=== PATIENT | male | born 1990 | race Caucasian/White ===

== ENCOUNTER 2017-01-11 08:48 | Emergency (ER) | payer MEDICAID ==
[~2017-01-11] VITALS: Ht 182.9 cm; Wt 96.5 kg
[~2017-01-11 08:48] MED LIST: ACET325T33 PO; IBUP800T25 PO; MECL25TA2 PO
[2017-01-11 08:53] VITALS: Ht 182.9 cm; Wt 96.5 kg
--- NOTE | 2017-01-11 09:31 | RADRPT ---
PROCEDURE: Shoulder x-ray CLINICAL INDICATION: Pain TECHNIQUE: Left shoulder 3 views COMPARISON: None FINDINGS: 3 views of the left shoulder demonstrate no displaced fracture. The humeral head articulates anatom ically with the glenoid fossa. The acromioclavicular articulation is within normal limits. Bones a re normally mineralized. Soft tissues are unremarkable. IMPRESSION: No acute fracture dislocation No significant degenerate change RPTAT: HH .Jus Farmer MD, Date Time Electronically viewed and signed by .Jus Farmer MD, on 01/11/2017 09:31 .W/
[2017-01-11] MEDS ORDERED: IBUP-1542 PO (09:44)
[2017-01-11] MEDS ORDERED: HYDR-906 PO (09:45)
--- NOTE | 2017-01-11 09:55 | ERD ---
ER Documentation Chief Complaint Date/Time DATE: 01/11/17 TIME: 09:50 Chief Complaint PT WITH L SHOULDER PAIN SINCE YESTERDAY, AFTER GLF HPI Patient is a 26-year-old male who presents to the emergency department with left shoulder pain since yesterday. Patient states he was playing soccer when he tripped over the ball and landed on his left shoulder. Patient reports pain localized to left shoulder. Patient denies any radiation of pain down his arm. Patient does report pain with attempting to elevate his arm. Patient has normal range of motion of the elbow hand and fingers. Patient denies any previous injuries to the affected extremity. Patient is right-hand dominant. Patient does report taking Tylenol for his symptoms with some alleviation of the pain. Patient denies any head injury, fevers, chills, nausea, vomiting, chest pain, shortness of breath or LOC. ROS All systems reviewed and are negative except as per history of present illness. Medications Home Meds Active Scripts Hydrocodone/Acetaminophen ([place] 5-325 Tablet) 1 Each Tablet, 1 TAB PO Q6H Y for PAIN, #7 TAB Prov:CYRIL SANABRIA PA-C 01/11/17 Ibuprofen* (Motrin*) 600 Mg Tab, 600 MG PO Q6, #30 TAB Prov:CYRIL SANABRIA PA-C 01/11/17 Acetaminophen* (Tylenol*) 325 Mg Tablet, 2 TAB PO Q6 Y for PAIN AND OR ELEVATED TEMP, #20 TAB Prov:MAYNOR HERNANDEZRAM DO 01/16/15 Meclizine Hcl* (Antivert*) 25 Mg Tablet, 25 MG PO Q6H Y for dizziness, #20 TAB Prov[facility] 01/16/15 Ibuprofen* (Motrin*) 800 Mg Tab, 800 MG PO Q6H Y for PAIN AND OR ELEVATED TEMP, #20 TAB Prov:MAYNOR HERNANDEZRAM DO 01/16/15 Allergies Allergies: Coded Allergies: No Known Allergy (Unverified , 01/11/17) PMhx/Soc Medical and Surgical Hx: pt denies Medical Hx, pt denies Surgical Hx History of Surgery: No Hx Neurological Disorder: No Hx Respiratory Disorders: No Hx Cardiac Disorders: No Hx Psychiatric Problems: No Hx Miscellaneous Medical Probl: No Hx Alcohol Use: No Hx Substance Use: No Hx Tobacco Use: No Smoking Status: Never smoker Physical Exam Vitals Vital Signs Date Time Temp Pulse Resp B/P Pulse Ox O2 Delivery O2 Flow Rate FiO2 01/11/17 08:53 97.5 72 18 128/74 96 Physical Exam GENERAL: Well-developed, well-nourished male. Appears in no acute distress. Speaking in full sentences HEAD: Normocephalic, atraumatic. EYES: Pupils are equally reactive bilaterally. EOMs grossly intact. No conjunctival erythema. ENT: Moist mucous membranes. No uvula deviation. No kissing tonsils. NECK: Supple. No meningismus. Normal range of motion of the neck. LUNG: Clear to auscultation bilaterally. No rhonchi, wheezing, rales or coarse breath sounds. HEART: Regular rate and rhythm. No murmurs, rubs or gallops. BACK: No midline tenderness. EXTREMITIES: Equal pulses bilaterally. No peripheral clubbing, cyanosis or edema. No unilateral leg swelling. NEUROLOGIC: Alert and oriented. Moving all four extremities without any difficulty. Normal speech. Steady gait. SKIN: Normal color. Warm and dry. No rashes or lesions. LEFT SHOULDER: No obvious deformity, erythema, ecchymosis. Slight swelling noted to the anterior shoulder. Decreased range of motion of the shoulder secondary to pain. Nontender to palpation of the distal humerus, elbow, forearm. Patient able to supinate pronate without any difficulty. Normal range of motion of the elbow. Sensation intact to light touch. Neurovascularly intact. (Able to give thumbs up, make an ok sign, cross digits 2 and 3, thumb to pinky opposition. 2+ RP.) No snuffbox tenderness. Procedures/MDM ED COURSE: The patient was stable throughout ED course. I kept the patient and/or family informed of laboratory and diagnostic imaging results throughout the ED course. DIAGNOSTIC IMAGING: Read by radiologist. Patient: SANDI WOODALL : 1990 Age: 26 Sex: M MR #: [id number] DOS: 01/11/17 0901 Ordering MD: CYRIL SANABRIA PA-C Location: [facility] Room/Bed: PROCEDURE: Shoulder x-ray CLINICAL INDICATION: Pain TECHNIQUE: Left shoulder 3 views COMPARISON: None FINDINGS: 3 views of the left shoulder demonstrate no displaced fracture. The humeral head articulates anatomically with the glenoid fossa. The acromioclavicular articulation is within normal limits. Bones are normally mineralized. Soft tissues are unremarkable. IMPRESSION: No acute fracture dislocation No significant degenerate change RPTAT: HH .Jus Farmer MD, MD Date Time Electronically viewed and signed by .Jus Farmer MD, MD on 01/11/2017 09:31 .W/ CC: CYRIL SANABRIA PA-C PROCEDURES: SPLINT APPLICATION: The patient was verbally consented at bedside prior to splint application. Patient was explained the risks, benefits and alternatives to this procedure. The patient was neurovascularly intact prior to and status post application of the splint. The patient tolerated the procedure well with no complications. Splint type: ED sling Extremity: L shoulder Indication: L shoulder pain, unable to rule out any ligament or tendon injuries at this time. MEDICAL DECISION MAKING: This is a 26-year-old male who presents with left shoulder pain after ground- level fall while playing soccer yesterday. Vital signs were reviewed. Patient is afebrile. Patient is not hypoxic. Imaging was negative for acute fracture dislocation. No significant degenerative changes noted. Patient was placed and shoulder sling for comfort measures. Patient was advised to follow-up with the laboratory specialist and/or obtain an MRI and an outpatient basis if his pain persists. Given these findings, the patients presentation is most consistent with left shoulder pain. I have a much lower clinical concern for fracture, dislocation, impingement syndrome, biceps tendonitis, gout, septic joint, osteoarthritis. Unable to rule out any ligament or tendon injuries at this time. PRESCRIPTIONS: Ibuprofen, [place] DISCHARGE: At this time, patient is stable for discharge and outpatient management. Patient was provided with copy of all imaging studies obtained today. RICE therapy and ROM exercises were advised to avoid stiffness. I have instructed the patient to follow-up with his/her primary care physician in 1-2 days. I have discussed with the patient the possibility of needing to see an laboratory specialist for further workup and imaging if the pain persists. I have instructed the patient to promptly return to the ER for any new or worsening symptoms including increased pain, swelling, redness, warmth or fever. The patient and/or family expressed understanding of and agreement with this plan. All questions were answered. Home care instructions were provided. Disclaimer: Inadvertent spelling and grammatical errors are likely due to EHR/ dictation software use and do not reflect on the overall quality of patient care. Also, please note that the electronic time recorded on this note does not necessarily reflect the actual time of the patient encounter. Departure Diagnosis: Primary Impression: Shoulder injury Encounter type: initial encounter Laterality: left Qualified Code: S49.92XA - Shoulder injury, left, initial encounter Condition: Stable Patient Instructions: Shoulder Pain (Uncertain Cause) Referrals: [facility] YOU HAVE RECEIVED A MEDICAL SCREENING EXAM AND THE RESULTS INDICATE THAT YOU DO NOT HAVE A CONDITION THAT REQUIRES URGENT TREATMENT IN THE EMERGENCY DEPARTMENT. FURTHER EVALUATION AND TREATMENT OF YOUR CONDITION CAN WAIT UNTIL YOU ARE SEEN IN YOUR DOCTORS OFFICE WITHIN THE NEXT 1-2 DAYS. IT IS YOUR RESPONSIBILITY TO MAKE AN APPOINTMENT FOR FOLOW-UP CARE. IF YOU HAVE A PRIMARY DOCTOR --you should call your primary doctor and schedule an appointment IF YOU DO NOT HAVE A PRIMARY DOCTOR YOU CAN CALL OUR PHYSICIAN REFERRAL HOTLINE AT IF YOU CAN NOT AFFORD TO SEE A PHYSICIAN YOU CAN CHOSE FROM THE FOLLOWING [facility] [address] [facility]. [facility] [address] [facility]. [facility] [address] [facility] [facility] [address] [facility] [facility] [address] [facility]. [facility]. [address] [facility]. [facility] YOU HAVE RECEIVED A MEDICAL SCREENING EXAM AND THE RESULTS INDICATE THAT YOU DO NOT HAVE A CONDITION THAT REQUIRES URGENT TREATMENT IN THE EMERGENCY DEPARTMENT. FURTHER EVALUATION AND TREATMENT OF YOUR CONDITION CAN WAIT UNTIL YOU ARE SEEN IN YOUR DOCTORS OFFICE WITHIN THE NEXT 1-2 DAYS. IT IS YOUR RESPONSIBILITY TO MAKE AN APPOINTMENT FOR FOLOW-UP CARE. IF YOU HAVE A PRIMARY DOCTOR --you should call your primary doctor and schedule and appointment IF YOU DO NOT HAVE A PRIMARY DOCTOR YOU CAN CALL OUR PHYSICIAN REFERRAL HOTLINE AT . IF YOU CAN NOT AFFORD TO SEE A PHYSICIAN YOU CAN CHOSE FROM THE FOLLOWING [facility] INSTITUTIONS: [facility] [address] [place] [address] [facility] [address] [place] [address] [facility] [address] [place] [address] [facility] Hours: Mon-Fri 9:00 AM - 5:00 PM Additional Instructions: Call your primary care doctor TOMORROW for an appointment during the next 1-2 days.See the doctor sooner or return here if your condition worsens before your appointment time. Unable to rule out any ligament or tendon injuries at this time. Patient advised to follow-up with an laboratory specialist and/or obtain an MRI on an outpatient basis if the pain persists. CYRIL SANARBIA PA-C Jan 11, 2017 09:55
== END 2017-01-11 10:03 | disposition home or self-care (01) ==
LOC: FTE 08:48
DX: S49.92XA Unspecified injury of left shoulder and upper arm, initial encounter (principal); W01.0XXA Fall on same level from slipping, tripping and stumbling without subsequent striking against object, initial encounter; Y92.9 Unspecified place or not applicable
CPT/HCPCS: 73030; Z7502

== ENCOUNTER 2017-08-17 17:03 | Emergency (ER) | END 2017-08-17 17:50 | disposition home or self-care (01) ==

== ENCOUNTER 2018-08-02 08:10 | Emergency (ER) | payer MEDICAID ==
[~2018-08-02] VITALS: Ht 182.9 cm; Wt 106.5 kg
[~2018-08-02 08:10] MED LIST changes: +ALBU18HF INHALATION; +CLAR500T PO; +HYDR-4011 PO; +IBUP-1542 PO; -IBUP800T25 PO; +IBUP800T48 PO; +LORA1TAB54 PO
[2018-08-02 08:13] VITALS: BP 115/71; PULSE 62; RESP 18; Ht 182.9 cm; Wt 106.5 kg
[2018-08-02] MEDS ORDERED: KETOROLAC 60 MG INJ IM STA (08:35)
--- NOTE | 2018-08-02 08:42 | ERD ---
ER Documentation Chief Complaint Chief Complaint BACK PAIN , ONSET YESTERDAY @ GYM HPI This is a 28-year-old male with a nonsignificant past medical history presents ED with complaints of low back pain that started yesterday. Patient states that he was squatting at the gym and heard a crack in his low back and started to experience pain. Patient admits to painful range of motion and decreased range of motion due to pain. Aggravating factors include movement. Alleviating factors include rest. Patient rates pain at a 5 out of 10 at rest and rates at an 8 out of 10 with certain movements. Denies tingling, numbness, lack sensation, bowel/bladder incontinence, saddle paresthesias, fever, chills and history of IV drug abuse. Requesting x-ray. ROS All systems reviewed and are negative except as per history of present illness. Medications Home Meds Active Scripts Hydrocodone/Acetaminophen ([place] 5-325 Tablet) 1 Each Tablet, 1 TAB PO Q6H PRN for PAIN, #3 TAB Prov:MARIO DIEGO PA-C 08/02/18 Methocarbamol* (Robaxin*) 500 Mg Tab, 500 MG PO Q6, #15 TAB Prov:MARIO DIEGO PA-C 08/02/18 Naproxen* (Naprosyn*) 500 Mg Tablet, 500 MG PO BID PRN for PAIN AND/OR INFLAMMATION, #30 TAB Prov:MARIO DIEGO PA-C 08/02/18 Albuterol Sulfate* (Ventolin HFA*) 18 Gm Hfa.aer.ad, 2 PUFF INHALATION Q4H, #1 INHALER Prov:BILL,DOUG 08/17/17 Loratadine/Pseudoephedrine* (Claritin-D* 12 Hr) 5-120 Mg Tab.er.12h, 1 TAB PO Q DAY PRN for ROUTINE for 10 Days, #20 TAB.SA Prov:BILL,DOUG 08/17/17 Clarithromycin* (Clarithromycin*) 500 Mg Tablet, 500 MG PO BID for 10 Days, #20 TAB Prov:BILL,DOUG 08/17/17 Hydrocodone/Acetaminophen ([place] 5-325 Tablet) 1 Each Tablet, 1 TAB PO Q6H PRN for PAIN, #7 TAB Prov:CYRIL SANABRIA PA-C 01/11/17 Ibuprofen* (Motrin*) 600 Mg Tab, 600 MG PO Q6, #30 TAB Prov:CYRIL SANABRIA PA-C 01/11/17 Acetaminophen* (Tylenol*) 325 Mg Tablet, 2 TAB PO Q6 PRN for PAIN AND OR ELEVATED TEMP, #20 TAB Prov:TRACEE HERNANDEZ 01/16/15 Meclizine Hcl* (Antivert*) 25 Mg Tablet, 25 MG PO Q6H PRN for dizziness, #20 TAB Prov:[facility]ID[facility] 01/16/15 Ibuprofen* (Motrin*) 800 Mg Tab, 800 MG PO Q6H PRN for PAIN AND OR ELEVATED TEMP, #20 TAB Prov:[facility] 01/16/15 Allergies Allergies: Coded Allergies: No Known Allergy (Unverified , 01/11/17) PMhx/Soc History of Surgery: No Hx Neurological Disorder: No Hx Respiratory Disorders: No Hx Cardiac Disorders: No Hx Psychiatric Problems: No Hx Miscellaneous Medical Probl: No Hx Alcohol Use: Yes Hx Substance Use: No Hx Tobacco Use: No Smoking Status: Never smoker FmHx Family History: No diabetes Physical Exam Vitals Vital Signs Date Temp Pulse Resp B/P (MAP) Pulse Ox O2 O2 Flow FiO2 Time Delivery Rate 08/02/18 97.8 62 18 115/71 98 08:13 (86) Physical Exam Physical Exam Vitals signs: Reviewed by me. General: Well developed, well nourished, in no acute distress. Patient is awake and alert. Head: Normocephalic, atraumatic. Eyes: Normal conjunctiva, Pupils PERRLA, EOM intact grossly Respiratory: Clear to auscultation bilaterally with no wheezing, rhonchi, rales, no distress Cardiovascular: RRR, no murmurs, rubs, or gallops Back: No thoracic or lumbar midline tenderness, there is mild tenderness palpation along the paravertebral muscles in the left lumbar spine, full range of motion with flexion extension and left and right lateral rotation, no step- off deformities Neurologic: Alert and oriented, moving all extremities, normal speech, no focal weakness, no cerebellar signs. Normal mentation Skin: warm and dry, No rash Psych: Normal mood Results 24 hrs Current Medications Medications Dose Sig/Eric Start Time Status Last (Trade) Ordered Route PRN Stop Time Admin Dose Reason Admin Ketorolac 60 mg ONCE STAT 08/02/18 DC 08/02/18 Tromethamine IM 08:35 08/02/18 08:42 (Toradol) 08:37 Procedures/MDM EKG, MONITORS, & DIAGNOSTIC IMAGING: [place] [address] Radiology Main Line: [phone] DIAGNOSTIC IMAGING REPORT Patient: SANDI WOODALL : 1990 Age: 28 Sex: M MR #: [id number] DOS: 08/02/18 0835 Ordering MD: MARIO DIEGO PA-C Location: [facility]TE Room/Bed: PROCEDURE: XR Lumbar Spine. CLINICAL INDICATION: back pain TECHNIQUE: AP, lateral and cone-down lateral view of the lumbar spine were obtained. COMPARISON: No prior studies are available for comparison. FINDINGS: There is normal vertebral mineralization and alignment. No fracture or subluxation is seen. The disc spaces are normal in appearance. The posterior elements are unremarkable. The soft tissues appear normal. RPTAT: AA IMPRESSION: Unremarkable lumbar spine. .Marvel Bran MD, MD Date Time Electronically viewed and signed by .Marvel Bran MD, MD on 08/02/2018 09:26 .S/ CC: MARIO DIEGO PA-C [id number] ER COURSE: The patient was given Toradol The medication was well tolerated and the patient reports improvement in symptoms. The patient was stable throughout ED course. I kept the patient and/or family informed of laboratory and diagnostic imaging results throughout the emergency room course. The patient was promptly evaluated and a treatment plan was devised based on H&P and other data. This plan was discussed with the patient who agreed and had no further questions or concerns prior to discharge. MEDICAL DECISION MAKIN-year-old male presents ED with low back pain status post injury while squatting at the gym yesterday. Given mechanism of injury and location of back pain being along the paravertebral muscles this is likely a muscle strain or muscle related pain. Patient requesting x-rays. X-rays are unremarkable. History and physical examination other data not consistent with processing including cauda equina syndrome, cord compression, infiltrative etiology, infectious etiology, epidural abscess, fracture, obstructive pyelonephritis, abdominal aortic aneurysm. Vitals are stable and patient can be managed outpatient with close follow-up. Advised patient to follow up with primary care in the next 48 hours. return to ED with any worsening symptoms DISPOSITION PLAN: We discussed follow up with the patient's primary care doctor within 24 to 48 hours. Patient counseled regarding my diagnostic impression and care plan. Prior to discharge all questions answered. Pt agrees with treatment plan and understands strict return precautions. Precautionary instructions provided including instructions to return to the ER if not improving or for any worsening or changing symptoms or concerns. SPECIALIST FOLLOW UP RECOMMENDED: None Patient has been advised to follow up with primary care in 1-2 days. Disclaimer: Inadvertent spelling and grammatical errors are likely due to EHR/dictation software use and do not reflect on the overall quality of patient care. Also, please note that the electronic time recorded on this note does not necessarily reflect the actual time of the patient encounter. Departure Diagnosis: Primary Impression: Back pain Back pain location: low back pain Chronicity: acute Back pain laterality: left Sciatica presence: without sciatica Qualified Codes: M54.5 - Low back pain Condition: Stable Patient Instructions: Back Pain (Acute Or Chronic) Referrals: [facility] Additional Instructions: Patient advised to return to the ED immediately for new or worsening symptoms. Patient advised to follow up with primary care provider in the next 24-48 hours. Patient verbalized understanding and agrees with treatment plan and course of action. If patient has no primary care they may follow up with one of the community clinics listed on the following page or one of the options listed below [facility] + [facility] [address] [place] [id number] or [facility] [address] [place] [address] or [facility] [address] [place] [address] MARIO DIEGO PA-C Aug 02, 2018 08:42
[2018-08-02] MEDS ORDERED: HYDR-4011 PO (08:43)
[2018-08-02] MEDS ORDERED: NAPR-985 PO (08:43)
[2018-08-02] MEDS ORDERED: METH500T PO (08:43)
== END 2018-08-02 09:38 | disposition home or self-care (01) ==
LOC: FTE 08:10
DX: M54.5 Low back pain (principal)
CPT/HCPCS: 72100; 96372; J1885; Z7502

== ENCOUNTER 2018-10-05 19:48 | Emergency (ER) | payer MEDICAID ==
[~2018-10-05] VITALS: Ht 182.9 cm; Wt 110.3 kg
[~2018-10-05 19:48] MED LIST changes: +METH500T PO; +NAPR-985 PO
[2018-10-05 19:59] VITALS: BP 131/65; PULSE 67; RESP 18; Ht 182.9 cm; Wt 110.3 kg
--- NOTE | 2018-10-05 21:20 | ERD ---
ER Documentation Chief Complaint Chief Complaint sore throat x 1 day, also c/o earache, pain bilateral axilla HPI 28-year-old male, previously healthy, presents to the emergency department, complaining of sore throat, associated with right ear pain that started approximately 4 days ago but is getting worse; the patient also reports subjective fever, headache and general malaise. He has a history of contact dermatitis in the axillary area and is requesting a refill for triamcinolone. ROS All systems reviewed and are negative except as per history of present illness. Medications Home Meds Active Scripts Triamcinolone Acetonide (Triamcinolone Acetonide) 0.1% - 15 Gm Cream.gm., 1 APPLIC TOP BID for 7 Days, #1 TUB Prov:JACLYN SULLIVAN MD 10/05/18 Ibuprofen* (Motrin*) 600 Mg Tab, 600 MG PO Q8, #20 TAB Prov:JACLYN SULLIVAN MD 10/05/18 Azithromycin* (Zithromax*) 250 Mg Tablet, 250 MG PO .OliverioPACK DIRECTED, #6 TAB TAKE 500 MG (2 TABS) THE FIRST DAY THEN 250 MG (1 TAB) DAYS 2-5 Prov:JACLYN SULLIVAN MD 10/05/18 Hydrocodone/Acetaminophen ([place] 5-325 Tablet) 1 Each Tablet, 1 TAB PO Q6H PRN for PAIN, #3 TAB Prov:MARIO DIEGO PA-C 08/02/18 Methocarbamol* (Robaxin*) 500 Mg Tab, 500 MG PO Q6, #15 TAB Prov:MARIO DIEGO PA-C 08/02/18 Naproxen* (Naprosyn*) 500 Mg Tablet, 500 MG PO BID PRN for PAIN AND/OR INFLAMMATION, #30 TAB Prov:MARIO DIEGO PA-C 08/02/18 Albuterol Sulfate* (Ventolin HFA*) 18 Gm Hfa.aer.ad, 2 PUFF INHALATION Q4H, #1 INHALER Prov:BILLDOUG 08/17/17 Loratadine/Pseudoephedrine* (Claritin-D* 12 Hr) 5-120 Mg Tab.er.12h, 1 TAB PO Q DAY PRN for ROUTINE for 10 Days, #20 TAB.SA Prov:BILLDOUG 08/17/17 Clarithromycin* (Clarithromycin*) 500 Mg Tablet, 500 MG PO BID for 10 Days, #20 TAB Prov:BILL,DOUG 08/17/17 Hydrocodone/Acetaminophen ([place] 5-325 Tablet) 1 Each Tablet, 1 TAB PO Q6H PRN for PAIN, #7 TAB Prov:ELLYPETERCLARK PA-C 01/11/17 Ibuprofen* (Motrin*) 600 Mg Tab, 600 MG PO Q6, #30 TAB Prov:ELLYCYRIL PA-C 01/11/17 Acetaminophen* (Tylenol*) 325 Mg Tablet, 2 TAB PO Q6 PRN for PAIN AND OR ELEVATED TEMP, #20 TAB Prov:TRACEE HERNANDEZ 01/16/15 Meclizine Hcl* (Antivert*) 25 Mg Tablet, 25 MG PO Q6H PRN for dizziness, #20 TAB [facility] 01/16/15 Ibuprofen* (Motrin*) 800 Mg Tab, 800 MG PO Q6H PRN for PAIN AND OR ELEVATED TEMP, #20 TAB Prov:TRACEE HERNANDEZ 01/16/15 Allergies Allergies: Coded Allergies: No Known Allergy (Unverified , 01/11/17) PMhx/Soc Medical and Surgical Hx: pt denies Medical Hx, pt denies Surgical Hx History of Surgery: No Hx Neurological Disorder: No Hx Respiratory Disorders: No Hx Cardiac Disorders: No Hx Psychiatric Problems: No Hx Miscellaneous Medical Probl: No Hx Alcohol Use: No Hx Substance Use: No Hx Tobacco Use: No Smoking Status: Never smoker FmHx Family History: No diabetes, No coronary disease Physical Exam Vitals Vital Signs Date Temp Pulse Resp B/P (MAP) Pulse Ox O2 O2 Flow FiO2 Time Delivery Rate 10/05/18 97.8 67 18 131/65 98 19:59 (87) Physical Exam Patient is in moderate distress due to pain. EYES: PERRLA, EOMI, injected sclerae EARS: Canals clear, erythematous tympanic membranes THROAT: Erythematous oropharynx with bilateral exudates NECK: Supple, + tender cervical lymphadenopathy. Full ROM without pain or tenderness. HEART: RRR, no rubs, murmurs, clicks or gallops. LUNGS: Bilateral rhonchi to auscultation. ABDOMEN: Soft, non-tender without masses or hepatosplenomegaly. EXTREMITIES: No edema bilaterally, bilateral axillary erythematous plaques. BACK: Full ROM, no deformity, normal back exam NEURO: Cranial nerves grossly intact, no motor or sensory deficit Procedures/MDM Differential diagnosis include but not limited to: Tonsillar/pharyngeal infection bacterial/viral/fungal, parotitis, allergies, GERD. Less likely p eritonsillar abscess, retropharyngeal abscess. No signs of upper respiratory obstruction Physical examination and clinical presentation consistent most likely with acute suppurative tonsillitis. Centor criteria 4/5. During the ED course the patient remained stable. Clinical impression discussed with the patient who agrees with management. The patient is stable to be treated outpatient and will be discharged home with a Rx for antibiotic and ibuprofen. Some side effects of prescribed medications (headache, rash, nausea, vomiting, diarrhea, drowsiness, habituation, bleeding, hypertension, interactions with other medications) were reviewed. The patient was instructed to follow up with the primary care provider in the next 48h. If symptoms persist, worsen or new symptoms develop, then patient should return to the ED immediately. Disclaimer: Inadvertent spelling and grammatical errors are likely due to EHR/dictation software use and do not reflect on the overall quality of patient care. Also, please note that the electronic time recorded on this note does not necessarily reflect the actual time of the patient encounter. Departure Diagnosis: Primary Impression: Otitis media Additional Impressions: Suppurative tonsillitis Contact dermatitis Condition: Stable Patient Instructions: Otitis Media, Abx Tx (Adult) Additional Instructions: Thank you very much for allowing us to participate in your care. Your health and safety is our top priority at [facility]. The evaluation in the emergency department has been done to rule out an acute emergency, therefore, chronic conditions like malignancy or other diseases have not been evaluated; therefore, you need to follow up with a primary care provider in the next 48h. If symptoms persist, worsen or new symptoms develop, then patient should return to the ED immediately. Call your primary care doctor TOMORROW for an appointment during the next 2-4 days and bring all the information provided. Have prescriptions filled and follow precisely the directions on the label. If the symptoms get worse and your provider is unavailable, return to the Emergency Department immediately. JACLYN SULLIVAN MD October 05, 2018 21:20
[2018-10-05] MEDS ORDERED: TRIA15CR55 TOP (21:35)
[2018-10-05] MEDS ORDERED: AZIT250T PO (21:35)
[2018-10-05] MEDS ORDERED: IBUP-1542 PO (21:35)
== END 2018-10-05 21:44 | disposition home or self-care (01) ==
LOC: FTE 19:48
DX: H66.93 Otitis media, unspecified, bilateral (principal); J03.90 Acute tonsillitis, unspecified; L25.9 Unspecified contact dermatitis, unspecified cause; R40.2142 Coma scale, eyes open, spontaneous, at arrival to emergency department; R40.2362 Coma scale, best motor response, obeys commands, at arrival to emergency department; R40.2252 Coma scale, best verbal response, oriented, at arrival to emergency department
CPT/HCPCS: 99283

== ENCOUNTER 2018-10-12 11:22 | Emergency (ER) | payer MEDICAID ==
[~2018-10-12] VITALS: Ht 182.9 cm; Wt 110.7 kg
[~2018-10-12 11:22] MED LIST changes: +AZIT250T PO; +TRIA15CR55 TOP
[2018-10-12 11:42] VITALS: BP 117/62; PULSE 64; RESP 18; Ht 182.9 cm; Wt 110.7 kg
[2018-10-12] MEDS ORDERED: PRED20TA PO (12:18)
[2018-10-12] MEDS ORDERED: FEXO180T61 PO (12:18)
--- NOTE | 2018-10-12 12:21 | ERD ---
ER Documentation Chief Complaint Chief Complaint Bilateral ear pain, eye itchiness, axillary itchiness X 1 wk HPI 28-year-old male presents with some bilateral eye itchiness, bilateral ear itchiness and discomfort over the last 1 to 2 weeks. Patient also complains of itchiness and foreign body sensation in his throat. He denies any inciting event such as choking episodes or eating of fish or bones. Seen here previously and treated with antibiotics for possible ear infection without relief. He also complains of itching in his bilateral axilla. Patient denies any new foods, new medications. He does have a dog at home but he has had a dog for some time. Denies any fevers, shortness of breath, chest pain, vomiting or abdominal pain. ROS All systems reviewed and are negative except as per history of present illness. Medications Home Meds Active Scripts Fexofenadine Hcl* (Ioana*) 180 Mg Tablet, 180 MG PO DAILY, #30 TAB Prov:RAINA CROOK MD 10/12/18 Prednisone* (Prednisone*) 20 Mg Tab, 20 MG PO DAILY for 5 Days, TAB Prov:RAINA CROOK MD 10/12/18 Triamcinolone Acetonide (Triamcinolone Acetonide) 0.1% - 15 Gm Cream.gm., 1 APPLIC TOP BID for 7 Days, #1 TUB Prov:JACLYN SULLIVAN MD 10/05/18 Ibuprofen* (Motrin*) 600 Mg Tab, 600 MG PO Q8, #20 TAB Prov:JACLYN SULLIVAN MD 10/05/18 Azithromycin* (Zithromax*) 250 Mg Tablet, 250 MG PO .OliverioPACK DIRECTED, #6 TAB TAKE 500 MG (2 TABS) THE FIRST DAY THEN 250 MG (1 TAB) DAYS 2-5 Prov:JACLYN SULLIVAN MD 10/05/18 Hydrocodone/Acetaminophen ([place] 5-325 Tablet) 1 Each Tablet, 1 TAB PO Q6H PRN for PAIN, #3 TAB Prov:MARIO DIEGO PA-C 08/02/18 Methocarbamol* (Robaxin*) 500 Mg Tab, 500 MG PO Q6, #15 TAB Prov:MARIO DIEGO PA-C 08/02/18 Naproxen* (Naprosyn*) 500 Mg Tablet, 500 MG PO BID PRN for PAIN AND/OR INFLAMMATION, #30 TAB Prov:MARIO DIEGOC 08/02/18 Albuterol Sulfate* (Ventolin HFA*) 18 Gm Hfa.aer.ad, 2 PUFF INHALATION Q4H, #1 INHALER Prov:BILL,DOUG 08/17/17 Loratadine/Pseudoephedrine* (Claritin-D* 12 Hr) 5-120 Mg Tab.er.12h, 1 TAB PO Q DAY PRN for ROUTINE for 10 Days, #20 TAB.SA Prov:BILL,DOUG 08/17/17 Clarithromycin* (Clarithromycin*) 500 Mg Tablet, 500 MG PO BID for 10 Days, #20 TAB Prov:BILL,DOUG 08/17/17 Hydrocodone/Acetaminophen ([place] 5-325 Tablet) 1 Each Tablet, 1 TAB PO Q6H PRN for PAIN, #7 TAB Prov:CYRIL SANABRIA PA-C 01/11/17 Ibuprofen* (Motrin*) 600 Mg Tab, 600 MG PO Q6, #30 TAB Prov:CYRIL SANABRIAC 01/11/17 Acetaminophen* (Tylenol*) 325 Mg Tablet, 2 TAB PO Q6 PRN for PAIN AND OR ELEVATED TEMP, #20 TAB Prov:MAYNOR HERNANDEZRAM 01/16/15 Meclizine Hcl* (Antivert*) 25 Mg Tablet, 25 MG PO Q6H PRN for dizziness, #20 TAB [facility] 01/16/15 Ibuprofen* (Motrin*) 800 Mg Tab, 800 MG PO Q6H PRN for PAIN AND OR ELEVATED TEMP, #20 TAB Prov:TRACEE HERNANDEZ DO 01/16/15 Allergies Allergies: Coded Allergies: No Known Allergy (Unverified , 10/12/18) PMhx/Soc History of Surgery: No Hx Neurological Disorder: No Hx Respiratory Disorders: No Hx Cardiac Disorders: No Hx Psychiatric Problems: No Hx Miscellaneous Medical Probl: No Hx Alcohol Use: No Hx Substance Use: No Hx Tobacco Use: No FmHx Family History: No diabetes, No coronary disease, No other Physical Exam Vitals Vital Signs Date Temp Pulse Resp B/P (MAP) Pulse Ox O2 O2 Flow FiO2 Time Delivery Rate 10/12/18 98.4 64 18 117/62 98 11:42 (80) Physical Exam Const: No acute distress Head: Atraumatic Eyes: Normal Conjunctiva. Minimal irritation of the bilateral upper and lower lids. Eyes Alli and extraocular wounds are intact. No proptosis. ENT: Normal External Ears, Nose and Mouth. TMs normal. Oropharynx grossly normal. Airway patent. Neck: Full range of motion. No meningismus. Resp: Clear to auscultation bilaterally Cardio: Regular rate and rhythm, no murmurs Abd: Soft, non tender, non distended. Normal bowel sounds Skin: No petechiae or rashes Back: No midline or flank tenderness Ext: No cyanosis, or edema Neur: Awake and alert Psych: Normal Mood and Affect Procedures/MDM Presents with signs and symptoms most consistent with allergic reaction unspecified. Is no signs or symptoms or history to suggest foreign body, hypoxemia, rest or stress, anaphylaxis, cellulitis, additional concerning signs or symptoms. Will treat with a short course of prednisone, Ioana, recommendations for primary care follow-up and allergic testing for persistent symptoms. Patient advised to observe household exposures for possible allergies. Is also advised to follow-up with primary doctor for possible furth er evaluation treatment or allergy testing for persistent or worsening symptoms. He should return for fevers, shortness of breath, new worsening symptoms. The patient was stable with no new complaints during the ER course. Clinically, there is no current evidence to suggest meningitis, sepsis, acute abdomen, pneumonia, stroke, acute coronary syndrome, pulmonary embolism, aortic dissection or any other emergent condition appearing to require further evaluation or hospitalization. Patient counseled regarding my diagnostic impression and care plan. Prior to discharge all questions answered. Pt agrees with treatment plan and understands strict return precautions. Pt is instructed to follow up with primary care provider within 24-48 hours. Precautionary instr uctions provided including instructions to return to the ER if not improving or for any worsening or changing symptoms or concerns. Disclaimer: Inadvertent spelling and grammatical errors are likely due to EHR/dictation software use and do not reflect on the overall quality of patient care. Also, please note that the electronic time recorded on this note does not necessarily reflect the actual time of the patient encounter. Departure Diagnosis: Primary Impression: Allergic Encounter type: initial encounter Qualified Codes: T78.40XA - Allergy, unspecified, initial encounter Additional Impression: Ear problem Laterality: bilateral Qualified Codes: H93.93 - Unspecified disorder of ear, bilateral Condition: Stable Patient Instructions: Allergic Reaction, Other (Local) Referrals: [facility] YOU HAVE RECEIVED A MEDICAL SCREENING EXAM AND THE RESULTS INDICATE THAT YOU DO NOT HAVE A CONDITION THAT REQUIRES URGENT TREATMENT IN THE EMERGENCY DEPARTMENT. FURTHER EVALUATION AND TREATMENT OF YOUR CONDITION CAN WAIT UNTIL YOU ARE SEEN IN YOUR DOCTORS OFFICE WITHIN THE NEXT 1-2 DAYS. IT IS YOUR RESPONSIBILITY TO MAKE AN APPOINTMENT FOR FOLOW-UP CARE. IF YOU HAVE A PRIMARY DOCTOR --you should call your primary doctor and schedule an appointment IF YOU DO NOT HAVE A PRIMARY DOCTOR YOU CAN CALL OUR PHYSICIAN REFERRAL HOTLINE AT IF YOU CAN NOT AFFORD TO SEE A PHYSICIAN YOU CAN CHOSE FROM THE FOLLOWING [facility] [address] [facility] [address] [facility] [address] [facility] [address] [facility] [address] [facility]. [facility]. [address] Additional Instructions: Suspect symptoms are likely allergic. Recommend primary care follow-up for further evaluation and management. Recheck for fevers, shortness of breath, new or worsening symptoms. Observe household exposures for possible causes of allergic symptoms. RAINA CROOK MD October 12, 2018 12:21
== END 2018-10-12 13:58 | disposition home or self-care (01) ==
LOC: FTE 11:22
DX: H93.93 Unspecified disorder of ear, bilateral (principal)
CPT/HCPCS: 99283

== ENCOUNTER 2019-04-06 23:38 | Emergency (ER) | payer MEDICAID ==
[~2019-04-06] VITALS: Ht 182.9 cm; Wt 111.7 kg
[~2019-04-06 23:38] MED LIST changes: +ACET500C5 PO; +FEXO180T61 PO; +ONDA4TAB14 PO; +PRED20TA PO
[2019-04-06 23:53] VITALS: BP 126/62; PULSE 77; RESP 20; Ht 182.9 cm; Wt 111.7 kg
[2019-04-07] MEDS ORDERED: ACETAMINOPHEN 500 MG TAB PO STA (02:03)
[2019-04-07] MEDS ORDERED: ONDANSETRON (ODT) 4 MG TAB ODT STA (02:03)
== END 2019-04-07 03:06 | disposition home or self-care (01) ==
LOC: FTE 23:38
DX: R51 Headache (principal); F17.210 Nicotine dependence, cigarettes, uncomplicated; R11.0 Nausea
CPT/HCPCS: 70450; Z7502; Z7610